=== PATIENT | male | born 1955 | race Caucasian/White ===

== ENCOUNTER 2020-08-10 09:59 | Inpatient (IN) ==
--- OUTSIDE RECORDS SUMMARY | 2020-08-10 10:02 | External Medical Summary | Continuity of Care Document ---
:1955 Author Name Saadia Nunez, Provider Address Unavailable Unavailable , Care Team Providers Name Role Phone Aron Nunez, [email or web address] Catherine LONG Unavailable Unavailable Unavailable Unavailable Unavailable Problems Benign essential hypertension (401.1) (I10) Esophageal reflux (530.81) (K21.9) Pure hypercholesterolemia (272.0) (E78.00) Malaise and fatigue (780.79) (R53.81) Generalized anxiety disorder (300.02) (F41.1) Major depressive disorder, recurrent, moderate (296.32) (F33 .1) Encounter for screening for malignant neoplasm of prostate ( V76.44) (Z12.5) Arthritis (716.90) (M19.90) Nephrolithiasis (592.0) (N20.0) Nocturia (788.43) (R35.1) Chronic obstructive pulmonary disease (COPD) (496) (J44.9) Urinary frequency (788.41) (R35.0) Allergies and Adverse Reactions No Known Drug Allergies (Allergy) Medications Wellbutrin SR 150 MG Oral Tablet Extende d Release 12 Hour; Take 1 tablet twice daily Refills: 0 Breo Ellipta 100-25 MCG/INH Inhalation Aerosol Powder Breath Activated Refills: 0 Diovan HCT 160-12.5 MG Oral Tablet; TAKE 1 TABLET DAILY. Refills: 0 LORazepam 0.5 MG Oral Tablet; take 1 tablet twice daily as n eeded Refills: 0 Tamsulosin HCl - 0.4 MG Oral Capsule; TAKE 1 CAPSULE DAILY A S NEEDED Refills: 0 raNITIdine HCl - 300 MG Oral Capsule; TAKE 1 CAPSULE Daily Refills: 0 Pantoprazole Sodium 40 MG Oral Tablet Delayed Release; TAKE 1 TABLET DAILY. Refills: 0 HYDROcodone-Acetaminophen 5-325 MG Oral Tablet; TAKE 1 TABLET EVERY 4 TO 6 HOURS NEEDED FOR PAIN. Enrique Sharp I. Start: 25-Aug-2012 Quantity: 20 Refills: 0 Procedures History of Rotator Cuff Repair Status: C ompleted History of Neuroplasty Decompression Median Nerve At Carpal Status: Completed Tunnel History of Hip Surgery Status: Completed History of Neck Surgery Status: Complete d History of Renal Lithotripsy Status: Com pleted History of Colonoscopic Polypectomy Via Colostomy Status: Completed Immunizations Immunizations not documented Family History Unknown Family Member Family history of Diabetes Mellitus (V18.0) Status: Active Comments: Family History Family history of Heart Disease (V17.49) Status: Active Comments: Family History Family history of Hypertension (V17.49) Status: Active Comments: Family History Brother Family history of Colon Cancer (V16.0) Status: Active Social History - Smoking Status Smokes tobacco daily Plan of Treatment Planned Observations Planned Goals not documented Results No Known Results Results not documented
[2020-08-10 11:29] LABS: Hematocrit (blood only) 26.6 % (42-52); INR 1.3 (0.9-1.1); Mean Corpuscular Hemoglobin 26.1 pg (25-34); Mean Corpuscular Hgb Conc 30.1 g/dL (32-36); Mean Corpuscular Volume 86.6 fL (80-100); Mean Platelet Volume 9.4 fL (7.4-10.4); Nucleated RBC # (auto) 0.23 K/uL (0-0); Nucleated RBC % (auto) 0.7 %; Partial Thromboplastin Ratio 1.2; Partial Thromboplastin Time 33.5 Seconds (21.0-31.0); Platelet Count 475 K/uL (130-400); Prothrombin Time 13.1 Seconds (9.0-12.0); RDW Coefficient of Variation 16.5 % (11.5-14.5); RDW Standard Deviation 52.1 fL (36.4-46.3); Red Blood Count 3.07 M/uL (4.7-6.1)
[2020-08-10 11:35] LABS: Albumin Level 1.9 gm/dl (3.4-5.0); BUN Creatinine Ratio 21.5 (10-20); Calcium 9.4 mg/dl (8.5-10.1); Creatinine Clr Calc Pharmacy 57.2 ml/min; Est GFR (African American) 72.5; Est GFR (Non-African American) 62.5
[2020-08-10 11:38] LABS: Albumin Globulin Ratio 0.4 (0.9-2); Bilirubin,Total 0.8 mg/dl (0.2-1); Globulin 4.9 gm/dl (2.5-4.0); Total Protein 6.8 gm/dl (6.4-8.2)
[2020-08-10 11:45] LABS: ALC (manual) 0.83 K/uL (1.2-3.4); ANC (manual) 27.43 K/uL (1.4-6.5); Hypochromasia Present; Lymphocytes # (manual) 0.83 K/uL (1.2-3.4); Lymphocytes % (manual) 2.6 %; Metamyelocytes # (manual) 0.57 K/uL (0-0); Metamyelocytes % (manual) 1.8 %; Monocytes # (manual) 2.23 K/uL (0.11-0.59); Myelocytes # (manual) 0.83 K/uL (0-0); Myelocytes % (manual) 2.6 %; Neutrophils # (manual) 27.43 K/uL (1.4-6.5); Polychromasia 1+
[2020-08-10] MEDS ORDERED: ONDANSETRON INJ 2 MG/ML 2 ML VIAL IV STA (12:09)
[2020-08-10] MEDS ORDERED: PIPERACILL/TAZOBAC CONSULT ACTIVE PRN (12:09)
[2020-08-10] MEDS ORDERED: PIPERACILLIN/TAZOBACTAM 4.5 GM/120 ML BAG IV ONE (12:09)
[2020-08-10] MEDS ORDERED: MoRPHine SULFATE 10 MG/ML CARP/VIAL IV STA (12:09)
[2020-08-10] MEDS ORDERED: SODIUM CHLORIDE 0.9% 1000ML 2,000 ML IV ONE (12:09)
--- NOTE | 2020-08-10 12:14 | Emergency Department Note ---
Impression & Plan Hypoxia, Acute pulmonary embolism, Comfort measures only status, Metastatic primary lung cancer, Acute and chronic respiratory failure, Sepsis ED Provider Note NAME: BRANDON SEBASTIAN AGE: 64 SEX: M : 1955 ARRIVES VIA: Ambulance INFORMANT: Patient ED PROVIDER(S): Fox Brown DO CHIEF COMPLAINT: Shortness of breath, back and bilateral hip pain HPI: Patient is a 64-year-old male with metastatic lung cancer to the bilateral hips and abdomen who presents the ER for severe back pain and bilateral hip pain. Recently discharged from [facility] where he was diagnosed with iliac fossa mass, lung cancer. He has had increased pain and nausea. This morning he went to go the bathroom but is unable to move. He is having severe pain. He is a DNR/DNI. He is chronically on 5 L nasal at home. He has worsening shortness of breath. Denies any chest pain. No dysuria urgency or frequency. He does have some belly pain but he has been having this for the past week. Back pain and hip pain has been significantly worsening over the past 2 days since discharge. He has become more short of breath recently over the past 24 to 48 hours. ROS: See above HPI for pertinent positives & negatives. A total of 10 systems r eviewed and were otherwise negative. PAST MEDICAL HISTORY:See Below PAST SURGICAL HISTORY:See Below FAMILY HISTORY:See Below SOCIAL HISTORY:See Below HOME MEDICATIONS:See Below ALLERGIES:See Below VITALS:See Below PHYSICAL EXAMINATION: GENERAL: Sitting up in bed, alert, ill-appearing, moderate distress, slightly mottled EYE EXAM: normal conjunctiva. PERRL and EOM's grossly intact. OROPHARYNX: no exudate, no erythema, lips, buccal mucosa, and tongue normal and mucous membranes are dry NECK: supple, no nuchal rigidity, no adenopathy, non-tender LUNGS: Rhonchi bilateral. Normal chest wall mechanics HEART: Tacky, S1 normal and S2 normal ABDOMEN: abdomen soft, non-tender, normo-active bowel sounds, no masses, no rebound or guarding. BACK: Back is symmetrical on inspection and there is no deformity, significant pain over the midline lower lumbar and bilateral hips UPPER EXTREMITIES: upper extremities are grossly normal. LOWER EXTREMITIES: No pitting edema. Calves are equal bilateral NEURO EXAM: Normal sensorium, cranial nerves II-XII grossly intact, normal speech, no gross weakness of arms, no gross weakness of legs. MEDICAL DECISION MAKING: Patient is a 64-year-old male brought in by family who was recently discharged from [facility] with metastatic lung cancer. He presents the ER hypoxic. Chronically on 5 L but was switched to a nonrebreather. On nonrebreather pulse ox was 95%. IV was established blood work is obtained. He was tachycardic. White count was 31,000. Hemoglobin was 8. INR 1.3. BMP was unremarkable. Lactate was elevated at 5.5. Glucose was elevated to 20. Troponin was elevated at 1. LFTs with an AST of 156. UA was negative. CT [place] of the chest shows infiltrates, cancer as well as bilateral PEs. He was given IV narcotics. CT abdomen pelvis showed metastatic disease. Prolonged conversation with patient and brother at bedside. He does not want any aggressive treatment at this time. He would like to be made comfort care. At this time I discussed with the hospitalist for admission as he cannot get up and move around at all. He had already been given IV antibiotics. He was given IV fluids already as well. He is currently septic with bilateral PEs hypoxic and an elevated troponin. After prolonged discussion was made comfort care and admitted to the hospital. Triage Nursing notes reviewed. Prior medical records reviewed Vital Signs: reviewed and remarkable for hypoxic, tachycardia Differential diagnosis: Differential diagnoses includes but is not limited to pneumonia, bronchitis, COPD/Asthma exacerbation, pneumothorax, pulmonary embolism, congestive heart failure, acute coronary syndrome ER treatment provided: See below Diagnostics interpreted by me: ECG: Sinus tachycardia rate 119 Normal axis No PVCs Septal Q waves Mild ST elevations in the inferior leads as well as V3 4 5 and 6. Cardiac Monitoring: An order was placed for continuous cardiac monitoring. The monitor shows a rate of 110 with sinus rhythm. Laboratory studies: As stated above and show below. Imaging studies: CT of the chest shows bilateral PEs, cancer and pneumonia Consultation(s): Chiquis with Jaspal Michele for admission ED COURSE: Procedures: none Critical Care: I have personally spent 55 minutes of critical care time in the direct management of this patient. This includes bedside care, interpretation of diagnostic studies, and testing, discussion with consultants, patient, and family members, and other required patient management activities. This 55 mi nutes is in excess of all separately billable procedures. Past Med/Surg History Medical History (Updated 08/10/20 @ 18:19 by Fox Brown DO) Metastatic primary lung cancer Secondary malignant neoplasm of bone Social History Smoking Status: Former smoker Tobacco Type: Cigarettes Preferred Language: [place] Feels Safe at Home: Yes Allergies Allergies Allergy/AdvReac Type Severity Reaction Status Date / Time No Known Allergies Allergy Unverified 09/05/12 11:32 Home Meds Home Medications Medication Instructions Recorded Confirmed acetaminophen 650 mg PO Q8 PRN 08/10/20 08/10/20 albuterol sulfate 1 puff INHALATION Q6 08/10/20 08/10/20 ferrous sulfate 325 mg PO BID 08/10/20 08/10/20 methadone 10 mg PO DAILY 08/10/20 08/10/20 oxycodone 10 mg PO Q8 PRN 08/10/20 08/10/20 polyethylene glycol 3350 08/10/20 Results & Data (ED) Vital Signs Vital Signs - 24 hr 08/10/20 10:08 08/10/20 11:28 08/10/20 13:25 Temperature 36.6 C Temperature Source Oral Pulse Rate 116 H Pulse Rate [Apical] 116 H 111 H Pulse Rhythm Regular Pulse Strength Normal Respiratory Rate 26 H 26 H 28 H Respiratory Effort / Characteristics Labored Respiratory Pattern Tachypnea Blood Pressure 123/83 Blood Pressure [Left Arm] 123/86 111/79 Blood Pressure Mean 96 Blood Pressure Mean [Left Arm] 98 89 Blood Pressure Position Sitting Blood Pressure Position [Left Arm] Sitting Pulse Oximetry 92 93 97 Oxygen Delivery Method Non-rebreather Non-rebreather Non-rebreather Oxygen Flow Rate 15 15 15 Sepsis Recent Fever Within 48 Hours No Sepsis New/Unexplained Change in Mental Status No Sepsis Action Taken by Nursing No Action Required 08/10/20 14:30 Temperature Temperature Source Pulse Rate Pulse Rate [Apical] 109 H Pulse Rhythm Pulse Strength Respiratory Rate 24 Respiratory Effort / Characteristics Respiratory Pattern Blood Pressure Blood Pressure [Left Arm] 129/67 Blood Pressure Mean Blood Pressure Mean [Left Arm] 87 Blood Pressure Position Blood Pressure Position [Left Arm] Pulse Oximetry 95 Oxygen Delivery Method Non-rebreather Oxygen Flow Rate 15 Sepsis Recent Fever Within 48 Hours Sepsis New/Unexplained Change in Mental Status Sepsis Action Taken by Nursing Laboratory Data Result diagrams: 08/10/20 10:14 08/10/20 10:14 Lab Results 08/10/20 08/10/20 08/10/20 Range/Units 10:14 10:14 10:14 WBC 31.90 H* (4.8-10.8) K/uL RBC 3.07 L (4.7-6.1) M/uL Hgb 8.0 L (14.0-18.0) g/dL Hct 26.6 L (42-52) % MCV 86.6 (80-100) fL MCH 26.1 (25-34) pg MCHC 30.1 L (32-36) g/dL RDW Std Deviation 52.1 H (36.4-46.3) fL RDW Coeff of Ying 16.5 H (11.5-14.5) % Plt Count 475 H (130-400) K/uL MPV 9.4 (7.4-10.4) fL Absolute Nucleated RBC 0.23 H (0-0) K/uL Nucleated RBC % (auto) 0.7 % Neutrophils % (Manual) 86.0 % Lymphocytes % (Manual) 2.6 % Monocytes % (Manual) 7.0 % Metamyelocytes % (Man) 1.8 % Myelocytes % (Man) 2.6 % Neutrophils # (Manual) 27.43 H (1.4-6.5) K/uL Total Absolute Neuts 27.43 H (1.4-6.5) K/uL Lymphocytes # (Manual) 0.83 L (1.2-3.4) K/uL Total Abs Lymphocytes 0.83 L (1.2-3.4) K/uL Monocytes # (Manual) 2.23 H (0.11-0.59) K/uL Metamyelocytes # (Man) 0.57 H (0-0) K/uL Myelocytes # (Manual) 0.83 H (0-0) K/uL Polychromasia 1+ Hypochromasia Present PT 13.1 H (9.0-12.0) Seconds INR 1.3 H (0.9-1.1) APTT 33.5 H (21.0-31.0) Seconds PTT Ratio 1.2 Sodium 134 L (136-145) mmol/L Potassium 5.0 (3.5-5.1) mmol/L Chloride 98 (98-107) mmol/L Carbon Dioxide 24 (21-32) mmol/L Anion Gap 13.0 H (3-11) BUN 26 H (7-18) mg/dl Creatinine 1.23 (0.6-1.4) mg/dl Est Cr Clr Drug Dosing 57.2 ml/min Est GFR ( Amer) 72.5 Est GFR (Non-Af Amer) 62.5 BUN/Creatinine Ratio 21.5 H (10-20) Glucose 220 H (70-99) mg/dl Lactate (0.4-2.0) mmol/L Calcium 9.4 (8.5-10.1) mg/dl Total Bilirubin 0.8 (0.2-1) mg/dl AST 156 H (15-37) U/L ALT 53 (12-78) U/L Alkaline Phosphatase 451 H (45-117) U/L Troponin I (0-0.045) ng/ml Total Protein 6.8 (6.4-8.2) gm/dl Albumin 1.9 L (3.4-5.0) gm/dl Globulin 4.9 H (2.5-4.0) gm/dl Albumin/Globulin Ratio 0.4 L (0.9-2) Urine Color Urine Appearance (Clear) Urine pH (4.5-7.5) Ur Specific [place] (1.000-1.030) Urine Protein (Negative) Urine Glucose (UA) (Negative) Urine Ketones (Negative) Urine Blood (Negative) Urine Nitrite (Negative) Urine Bilirubin (Negative) Urine Urobilinogen (Negative) Ur Leukocyte Esterase (Negative) Urine WBC (Auto) (0-5) /hpf Urine RBC (Auto) (0-4) /hpf U Hyaline Cast (Auto) (0-5) /lpf U Epithel Cells (Auto) (0-5) /lpf Urine Bacteria (Auto) (Negative) 08/10/20 08/10/20 08/10/20 Range/Units 10:14 13:07 13:47 WBC (4.8-10.8) K/uL RBC (4.7-6.1) M/uL Hgb (14.0-18.0) g/dL Hct (42-52) % MCV (80-100) fL MCH (25-34) pg MCHC (32-36) g/dL RDW Std Deviation (36.4-46.3) fL RDW Coeff of Ying (11.5-14.5) % Plt Count (130-400) K/uL MPV (7.4-10.4) fL Absolute Nucleated RBC (0-0) K/uL Nucleated RBC % (auto) % Neutrophils % (Manual) % Lymphocytes % (Manual) % Monocytes % (Manual) % Metamyelocytes % (Man) % Myelocytes % (Man) % Neutrophils # (Manual) (1.4-6.5) K/uL Total Absolute Neuts (1.4-6.5) K/uL Lymphocytes # (Manual) (1.2-3.4) K/uL Total Abs Lymphocytes (1.2-3.4) K/uL Monocytes # (Manual) (0.11-0.59) K/uL Metamyelocytes # (Man) (0-0) K/uL Myelocytes # (Manual) (0-0) K/uL Polychromasia Hypochromasia PT (9.0-12.0) Seconds INR (0.9-1.1) APTT (21.0-31.0) Seconds PTT Ratio Sodium (136-145) mmol/L Potassium (3.5-5.1) mmol/L Chloride (98-107) mmol/L Carbon Dioxide (21-32) mmol/L Anion Gap (3-11) BUN (7-18) mg/dl Creatinine (0.6-1.4) mg/dl Est Cr Clr Drug Dosing ml/min Est GFR ( Amer) Est GFR (Non-Af Amer) BUN/Creatinine Ratio (10-20) Glucose (70-99) mg/dl Lactate 5.3 H* (0.4-2.0) mmol/L Calcium (8.5-10.1) mg/dl Total Bilirubin (0.2-1) mg/dl AST (15-37) U/L ALT (12-78) U/L Alkaline Phosphatase (45-117) U/L Troponin I 1.040 H* (0-0.045) ng/ml Total Protein (6.4-8.2) gm/dl Albumin (3.4-5.0) gm/dl Globulin (2.5-4.0) gm/dl Albumin/Globulin Ratio (0.9-2) Urine Color Dark Yellow Urine Appearance Clear (Clear) Urine pH 5.5 (4.5-7.5) Ur Specific [place] 1.027 (1.000-1.030) Urine Protein Trace H (Negative) Urine Glucose (UA) Negative (Negative) Urine Ketones Trace H (Negative) Urine Blood Negative (Negative) Urine Nitrite Negative (Negative) Urine Bilirubin Negative (Negative) Urine Urobilinogen Negative (Negative) Ur Leukocyte Esterase Negative (Negative) Urine WBC (Auto) 1-5 (0-5) /hpf Urine RBC (Auto) 0-4 (0-4) /hpf U Hyaline Cast (Auto) 5-10 H (0-5) /lpf U Epithel Cells (Auto) 10-20 H (0-5) /lpf Urine Bacteria (Auto) Negative (Negative) Administered Medications Acetaminophen (Acetaminophen 325 Mg Tab) 325 mg PO Q6H PRN PRN Reason: Pain or Fever Stop: 09/09/20 14:29 Last Admin: 08/10/20 17:31 Dose: 325 mg Documented by: [id number] Sodium Chloride (Nss 1000ml) 1,000 mls @ 80 mls/hr IV .[id number] BIJNA Stop: 08/11/20 05:59 Last Admin: 08/10/20 17:30 Dose: 80 mls/hr Documented by: [id number] Morphine Sulfate (Morphine Sulfate 2 Mg/Ml Carp) 2 mg IV Q6H PRN PRN Reason: Severe Pain Stop: 08/24/20 14:23 Last Admin: 08/10/20 14:45 Dose: 2 mg Documented by: [id number] Discontinued Medications Sodium Chloride (Nss 1000ml) 2,000 mls @ 999 mls/hr IV .Q2H1M ONE Stop: 08/10/20 14:09 Last Infusion: 08/10/20 18:08 Dose: 0 mls/hr Documented by: [id number] Admin: 08/10/20 13:03 Dose: 999 mls/hr Documented by: [id number] Piperacillin Sod/Tazobactam Sod (Zosyn) 4.5 gm in 120 mls @ 240 mls/hr IV NOW ONE Stop: 08/10/20 12:38 Last Infusion: 08/10/20 13:34 Dose: 0 mls/hr Documented by: [id number] Admin: 08/10/20 13:04 Dose: 240 mls/hr Documented by: [id number] Ioversol (Optiray 320 125ml) 118 ml IV ONCE ONE Stop: 08/10/20 12:23 Last Admin: 08/10/20 12:23 Dose: 118 ml Documented by: [id number] Morphine Sulfate (Morphine Sulfate 10 Mg/Ml Carp/Vial) 6 mg IV NOW STA Stop: 08/10/20 12:10 Last Admin: 08/10/20 12:56 Dose: Not Given Documented by: [id number] Morphine Sulfate (Morphine Sulfate 2 Mg/Ml Carp) Confirm Administered Dose 2 mg .ROUTE .STK-MED ONE Stop: 08/10/20 12:54 Last Admin: 08/10/20 12:55 Dose: 2 mg Documented by: [id number] Morphine Sulfate (Morphine Sulfate 4 Mg/Ml 1 Ml Carp\Vial) Confirm Administered Dose 4 mg .ROUTE .STK-MED ONE Stop: 08/10/20 12:54 Last Admin: 08/10/20 12:56 Dose: 4 mg Documented by: [id number] Ondansetron HCl (Ondansetron Inj 2 Mg/Ml 2 Ml Vial) 4 mg IV NOW STA Stop: 08/10/20 12:10 Last Admin: 08/10/20 12:57 Dose: 4 mg Documented by: [id number] Oxycodone HCl (Oxycodone Hcl Ir 5 Mg Tab (Immediate Release)) 5 mg PO NOW STA Stop: 08/10/20 14:15 Last Admin: 08/10/20 14:45 Dose: 5 mg Documented by: [id number] Discharge Plan Visit Data Chief Complaint: Back Injury/Pain ED Provider: Fox Brown Discharge Problem: Hypoxia, Acute pulmonary embolism, Comfort measures only status, Metastatic primary lung cancer, Acute and chronic respiratory failure, Sepsis Patient Disposition: Admitted As Inpatient Discharge Instructions Interventions: ED Discharge Assessment Last Done: 08/10/20 16:36 Discharge Problem: Acute pulmonary embolism Qualifiers: Pulmonary embolism type: other Acute cor pulmonale presence: unspecified Qualified Code(s): I26.99 - Other pulmonary embolism without acute cor pulmonale Metastatic primary lung cancer Qualifiers: Laterality: unspecified laterality Qualified Code(s): C34.90 - Malignant neoplasm of unspecified part of unspecified bronchus or lung Acute and chronic respiratory failure Qualifiers: Respiratory failure complication: hypoxia Qualified Code(s): J96.21 - Acute and chronic respiratory failure with hypoxia Sepsis Qualifiers: Sepsis type: sepsis due to unspecified organism Sepsis acute organ dysfunction status: unspecified Qualified Code(s): A41.9 - Sepsis, unspecified organism
[2020-08-10] MEDS ORDERED: OPTIRAY 320 125ml IV ONE (12:22)
[2020-08-10] MEDS ORDERED: MoRPHine SULFATE 2 MG/ML CARP ONE (12:53)
[2020-08-10] MEDS ORDERED: MoRPHine SULFATE 4 MG/ML 1 ML CARP\\VIAL ONE (12:53)
--- NOTE | 2020-08-10 12:59 | CT Scan Report ---
CT ANGIOGRAM OF THE CHEST CLINICAL HISTORY: Atypical chest pain POSSIBLE PULMONARY EMBOLISM COMPARISON STUDY: No previous studies for comparison. TECHNIQUE: Following the IV administration of 118 mL of Optiray-320, CT angiogram of the thorax was p erformed from the thoracic inlet to the lung bases utilizing the pulmonary embolus protocol. Images a re reviewed in the axial, sagittal, and coronal planes. IV contrast was administered without complica tion. MIP imaging was performed. A dose lowering technique was utilized adhering to the principles o f ALARA. CT DOSE: 697.52 mGy.cm FINDINGS: There is a 24 mm upper pole left renal cyst. There are enlarged right paratracheal lymph nodes. There is a mildly enlarged AP window lymph node. T here are mildly enlarged hilar lymph nodes. There was no evidence of thoracic aortic dilatation. There are bilateral pulmonary artery filling defects indicative of acute bilateral pulmonary embolism . The right hilar/mediastinal mass occludes the right upper lobe pulmonary artery. There is a trace right pleural effusion There is severe pulmonary emphysema. There is a right hilar mass measuring approximately 3 cm. There are adjacent satellite nodules. This encases the right upper lobe bronchus. This obstructs the right upper lobe pulmonary artery. There is scattered areas of groundglass opacity. There is an area of par enchymal consolidation within the right upper lobe posteriorly. There are left lower lobe airspace op acities, atelectatic versus infectious/inflammatory. There are old bilateral rib fractures. There is a destructive lesion involving the left posterior 10t h rib IMPRESSION: 1. Acute bilateral pulmonary embolism 2. 3 cm right hilar mass which encases the right upper lobe bronchus and obstructs the right upper lo be pulmonary artery. This is highly suspicious for neoplasm 3. Mediastinal and hilar lymphadenopathy 4. Bony destructive changes involving the left posterior 10th rib possibly metastatic 5. Severe pulmonary emphysema 6. Area of parenchymal consolidation within the right upper lobe posteriorly 7. Left lower lobe airspace opacities, atelectatic versus infectious/inflammatory ACT 112: Negative or not required by law. Electronically signed by: Mu Stanley M.D. 08/10/2020 12:58 PM
--- NOTE | 2020-08-10 13:02 | CT Scan Report ---
LUMBAR SPINE CT CT DOSE: HISTORY: lower back pain TECHNIQUE: Multiaxial CT images of the lumbar spine were performed and reformatted in the sagittal an d coronal plane without the use of contrast. A dose lowering technique was utilized adhering to the principles of ALARA. COMPARISON: None. FINDINGS: An acute mild superior endplate compression fracture at L1. There is associated 1.8 cm lyti c/destructive lesion within the posterior left L1 vertebral body with associated paraspinal soft tiss ue component. Therefore, this is consistent with a pathologic fracture. Mild endplate concavity withi n the remaining lumbar spine vertebral bodies which could be chronic or represent subtle old compress ion fractures. No associated retropulsion. No significant central canal or neural foraminal narrowing by CT technique. IMPRESSION: 1. An acute mild superior endplate pathologic compression fracture at L1. There is associated 1.8 cm lytic/destructive lesion within the posterior left L1 vertebral body. 2. Mild endplate concavity within the remaining lumbar spine vertebral bodies which could be chronic or represent subtle old compression fractures ACT 112: Negative or not required by law. Electronically signed by: Angel Pandey M.D. 08/10/2020 1:01 PM
--- NOTE | 2020-08-10 13:11 | CT Scan Report ---
CT abd pelvis IV con only CLINICAL HISTORY: back pain HISTORY OF LUNG CARCINOMA COMPARISON STUDY: None. TECHNIQUE: The patient was scanned in a dynamic helical fashion during intravenous administration of 1 18 cc of Optiray 320 A dose lowering technique was utilized adhering to the principles of ALARA. CT DOSE: FINDINGS: Lower chest: There are bilateral pulmonary artery filling defects indicative of pulmonary embolism. T here is a trace right pleural effusion. There are bibasilar airspace opacities, atelectatic versus in fectious/inflammatory. There are bony destructive changes involving the left posterior 10th rib. Liver: There is a subtle 7 cm hypodense mass within the right lobe the liver inferiorly. There are ad ditional small indeterminate hepatic hypodensities. Neoplasm is the diagnosis of exclusion. Gallbladder: Unremarkable. Spleen: Normal in size and attenuation. Pancreas: Unremarkable. Adrenal glands: There is a 15 mm left adrenal nodule. Kidneys: There is slight inhomogeneous renal enhancement. There are bilateral hypodense renal lesions likely representing cysts. Bowel: There is mild sigmoid wall thickening which may be secondary to peridiverticular muscular hype rtrophy. There are no peridiverticular inflammatory changes. Peritoneum: There is no intraperitoneal free air or abdominal ascites. Vasculature: The abdominal aorta is normal in course and caliber. There is possible bilateral superfi cial femoral vein thrombosis. Adenopathy: None. Pelvic viscera: The bladder, and pelvic viscera are unremarkable. Skeletal structures: There is a large 12 cm mass centered on the right iliac wing with secondary bony destructive changes. There is a 17 mm soft tissue nodule within the right gluteal musculature. There is a 16 mm soft tissue nodule located posterior to the left iliac crest. Is a 12 mm soft tissue nodu le in the left pectineal region. There is a 14 mm enhancing nodule within the left paraspinal muscula ture. IMPRESSION: 1. Bilateral pulmonary embolism 2. Trace right pleural effusion 3. Bibasilar airspace opacities, atelectatic versus infectious/inflammatory 4. 7 cm right lobe hepatic mass suspicious for neoplasm 5. 15 mm left adrenal nodule 6. 12 cm mass centered on the right iliac wing with secondary bony destructive change 7. Multiple intramuscular and soft tissue nodules consistent with metastatic disease 8. Possible superficial femoral vein DVT 9. Destructive lesion involving the left posterior 10th rib ACT 112: Negative or not required by law. Electronically signed by: Mu Stanley M.D. 08/10/2020 1:09 PM
[2020-08-10] MEDS ORDERED: MoRPHine SULFATE 4 MG/ML 1 ML CARP\\VIAL IV PRN (13:23)
[2020-08-10] MEDS ORDERED: MoRPHine SULFATE 2 MG/ML CARP IV PRN ×2 (13:23→14:24)
[2020-08-10 14:08] LABS: Appearance Urine Clear (Clear); Bacteria Urine Automated Negative (Negative); Blood Urine Negative (Negative); Color Urine Dark Yellow; Glucose Urine UA Negative (Negative); Ketones Urine Trace (Negative); Leukocyte Esterase Urine Negative (Negative); Nitrite Urine Negative (Negative); Protein Urine Trace (Negative); RBC Urine Automated 0-4 /hpf (0-4); Specific Gravity Urine 1.027 (1.000-1.030); Urobilinogen Urine Negative (Negative); pH Urine 5.5 (4.5-7.5)
[2020-08-10] MEDS ORDERED: OXYCODONE HCL IR 5 MG TAB (IMMEDIATE RELEASE) PO PRN (14:14)
[2020-08-10] MEDS ORDERED: OXYCODONE HCL IR 5 MG TAB (IMMEDIATE RELEASE) PO STA (14:14)
[2020-08-10] MEDS ORDERED: ACETAMINOPHEN 325 MG TAB PO PRN (14:19)
[2020-08-10 14:23] LABS: Bilirubin Urine Negative (Negative); Ictotest Urine Negative (Negative)
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
[2020-08-10] MEDS ORDERED: LEVALBUTEROL 1.25MG/0.5ML NEB NEB PRN (14:49)
--- NOTE | 2020-08-10 16:48 | Radiation OncologyConsultation ---
Date of Consultation August 10, 2020 Assessment & Plan (1) Metastatic primary lung cancer: (2) Secondary malignant neoplasm of bone: Assessment: Mr. Johnson is a 64-year-old gentleman who presents with metastatic lung cancer to the right pelvis. The patient was recently diagnosed after he presented to the ED at [facility] in [place], [place]. The patient was discharged with the plan of receiving outpatient oncology. The patient is now admitted at [facility]. He is suffering from intractable pain in his right pelvis. The patient ultimately plans to enter into comfort care. I am seeing the patient in consultation to discuss the role of palliative radiation therapy. Recommendation: Palliative external beam radiation therapy to the right pelvis. 1 fraction. 800 cGy. Plan: 1. CT simulation tomorrow for radiation therapy planning. 2. Plan to deliver radiation therapy tomorrow or Saturday. 3. Pain management as per primary team. 4. Palliative care consultation should be considered. 5. Call us with further questions or concerns. Rationale/Explanation of Treatment: I did explain the indications, alternatives, benefits, risks and side effects of external beam radiation therapy. I did explain the most common side effects including, but not limited to, skin erythema, skin breakdown, hyperpigmentation, telangiectasia, wound complications, perianal fistula development, fistula formation, nausea, vomiting, bowel obstruction, bowel perforation, dysuria, increased urinary frequency, urgency, diarrhea, constipation, melena, hematochezia, hematuria, radiation cystitis, radiation proctitis, fatigue, decreased blood counts, wound complications from surgery, rectal incontinence, secondary malignancy development. I did explain the procedures and daily process of radiation therapy. The patient understands and would be willing to consent to treatment. The patient and family had multiple questions which were answered to their full satisfaction. Thank you for allowing us to participate in the care of this patient. This chart was completed in part utilizing [employer] Speech Voice Recognition software. Attempts were made to minimize the grammatical errors, random word insertions, pronoun errors and incomplete sentences. Any formal questions or concerns about the content, text or information contained within the body of this dictation should be directly addressed to the provider for clarification. Jose Barclay MD Department of Radiation Oncology [facility] History of Present Illness History of Present Illness 07/26/2020. Patient presents to emergency department at [facility] with significant right hip and leg pain. 07/26/2020. CT of abdomen/pelvis. IMPRESSION: 1. 7.1 x 5.8 x 7.1 centimeter peripherally enhancing and centrally hypoattenuating RIGHT iliac mass with destruction of the RIGHT iliac bone and adjacent mass effect upon the gluteus and ileo psoas musculature. Other smaller adjacent hypoattenuating foci also noted which may relate to additional focus is of disease. Given appearance, findings may represent infection. However, given location and patient's history of smoking, superinfected metastatic disease also possible. 2. New 1.5 centimeter nodule adjacent to the LEFT gluteus musculature which may represent additional site of metastatic disease. 3. Sclerotic focus within the cortex of the LEFT iliac bone measuring 5 millimeters, not present on prior study. The etiology of this is nonspecific. 4. Partially visualized findings consistent with centrilobular emphysema. 07/27/2020. CT of chest. IMPRESSION: 1. No pulmonary emboli. 2. New right suprahilar and right upper lobe spiculated pulmonary nodule, narrowing right upper lobe segmental/subsegmental pulmonary arteries, veins and bronchi. Suspicious for malignancy. 3. Right hilar and mediastinal confluent soft tissue mass/enlarged lymph nodes, likely malignancy 4. 2.1 x 1.7 cm interatrial septal soft tissue mass. Left ventricular hypertrophy. Recommend correlate with scheduled echocardiogram. If question of mass persists consider cardiac MRI. 08/01/2020. Right iliac mass, core needle biopsy: Metastatic adenocarcinoma. 08/08/2020. Paratracheal lymph node, 4R, fine-needle aspiration. Non-small cell carcinoma, favor adenocarcinoma. Subcarinal lymph node, 7, fine-needle aspiration: Non-small cell carcinoma, favor adenocarcinoma. 08/08/2020. Patient discharged from [facility]. Patient plan to follow-up in the outpatient setting for medical oncology, radiation oncology and palliative care. 08/10/2020. Patient presents to emergency room due to significant pain involving the right pelvis. Patient will elect to undergo palliative external beam radiation therapy with comfort care. Currently, the patient does have some shortness of breath. Additionally, the patient is having significant pain involving his right hip. Allergies Allergy/AdvReac Type Severity Reaction Status Date / Time No Known Allergies Allergy Unverified 09/05/12 11:32 Home Medications Home Medications Medication Instructions Recorded Confirmed Type acetaminophen 650 mg PO Q8 PRN 08/10/20 08/10/20 History albuterol sulfate 1 puff INHALATION Q6 08/10/20 08/10/20 History ferrous sulfate 325 mg PO BID 08/10/20 08/10/20 History methadone 10 mg PO DAILY 08/10/20 08/10/20 History oxycodone 10 mg PO Q8 PRN 08/10/20 08/10/20 History polyethylene glycol 3350 08/10/20 History Patient History Medical History (Updated 08/10/20 @ 18:19 by Fox Brown DO) Metastatic primary lung cancer Secondary malignant neoplasm of bone Social History Smoking Status: Former smoker Tobacco Type: Cigarettes Preferred Language: Divehi Feels Safe at Home: Yes Review of Systems Review of Systems: All systems reviewed & are unremarkable except as noted in HPI & below Physical Exam Constitutional: WD/WN, vitals as above + acute distress, + ill appearing, + thin and + disheveled Eyes: PERRL, conjunctivae normal, anicteric sclerae ENMT: external ear and nose normal, oropharynx normal Neck: trachea midline, no thyromegaly Respiratory: normal respiratory effort, lungs clear to auscultation Cardiovascular: RRR, no murmur, no edema Gastrointestinal (Abdomen): normal bowel sounds, soft, nontender, no hepatosplenomegaly Musculoskeletal: no cyanosis or clubbing, extremities motor strength 5/5 Skin: no rashes, warm and dry Neurologic: patellar DTR's 2+ bilat, sensation intact and PERRL, EOMI, accommodation nl, no face palsy, no dysarthria Psychiatric: A+Ox3, euthymic affect Time Spent Attending I spent 15 minutes in preparation for this consultation including reviewing all the clinical records, reviewing laboratory studies, pathology reports and imaging results. I spent 30 minutes with direct face to face interaction with the patient and/or family including performing a physical exam and answering all questions. I spent 10 minutes documenting this patient's visit.
[2020-08-10] MEDS ORDERED: METOCLOPRAMIDE HCL INJ 5 MG/ML 2 ML VIAL IV PRN (16:54)
[2020-08-10] MEDS ORDERED: SODIUM CHLORIDE 0.9% 1000ML 1,000 ML IV SCH (17:30)
[2020-08-10] MEDS ORDERED: METHADONE HCL 5 MG TAB PO STA (18:09)
[2020-08-10] MEDS ORDERED: METHADONE HCL 5 MG TAB PO ONE (18:12)
[2020-08-10] MEDS ORDERED: FUROSEMIDE 40 MG in SYRINGE 0 ML IV ONE (18:38)
[2020-08-10] MEDS ORDERED: SCOPOLAMINE 1.5 MG TDSY TD ONE (18:45)
[2020-08-10] MEDS ORDERED: DOCUSATE SODIUM 100 MG CAP PO SCH (21:00)
[2020-08-10] MEDS ORDERED: FERROUS SULFATE 325 MG TAB PO SCH (21:00)
[2020-08-11] MEDS ORDERED: CHECK SCOPOLAMINE PATCH PLACEMENT SCH
--- NOTE | 2020-08-11 05:53 | Electrocardiogram Report ---
Test Reason : Blood Pressure : / mmHG Vent. Rate : 119 BPM Atrial Rate : 119 BPM P-R Int : 140 ms QRS Dur : 092 ms QT Int : 314 ms P-R-T Axes : 063 082 060 degrees QTc Int : [address] elevation, consider early repolarization When compared with ECG of 25-AUG-2012 12:10, Vent. rate has increased BY 62 BPM Criteria for Septal infarct are no longer Present Confirmed by Francisco Pace ([id number]) on 08/11/2020 5:53:12 AM Referred By: Confirmed By:Francisco Pace
--- NOTE | 2020-08-11 06:54 | Death Pronouncement Note ---
Date of Service August 10, 2020 Pronouncement Note Admission Date Admission Date: August 10, 2020 Date and Time of Date of : 08/10/20 Time of : 20:00 Contributing Factors (1) Metastatic primary lung cancer: (2) Secondary malignant neoplasm of bone: Additional Data Confirmation of : no pulse, no respirations, no heart sounds and pupils fixed and dilated Family: contacted Attending physician: Jaspal Michele MD Was code activated?: No
--- NOTE | 2020-08-11 07:32 | Death Pronouncement Note ---
Date of Service August 11, 2020 Pronouncement Note Admission Date Admission Date: August 10, 2020 Contributing Factors (1) Metastatic primary lung cancer: (2) Secondary malignant neoplasm of bone: Additional Data Attending physician: Jaspal Michele MD
[2020-08-11] MEDS ORDERED: METHADONE HCL 10 MG TAB PO SCH (09:00)
[2020-08-11] MEDS ORDERED: SENNA 8.6 MG TAB PO SCH (09:00)
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
== END 2020-08-11 00:38 | disposition expired | DRG 951 ==
LOC: ED 09:59 → 3E 14:34